=== PATIENT | male | born 2005 | race Caucasian/White ===

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

== ENCOUNTER 2023-06-14 22:52 | Emergency (ER) | payer SELFPAY ==
[2023-06-14] VITALS (14 sets, daily range): BP systolic 121–141; BP diastolic 55–74; PULSE 72–100; RESP 11–20; TEMP 37.1; O2SAT 97–100
--- NOTE | 2023-06-14 22:45 | RT.EKG_ITS ---
APPROVED REPORT Exam: Resting ECG Reason for Exam: RHIANNON Patient Location: E HR:81 bpm ECG Measurements Heart Rate [address] 116 P 44 QRSd 79 QRS 77 QT 417 T 57 QTc 485 Conclusion Sinus rhythm...normal P axis, V-rate 60- 99 ST elev, probable normal early repol pattern...ST elevation, age<55 sinus rhtyhm, normal axis, normal intervals, early repol anterior lateral leads
[2023-06-14] MEDS: Normal Saline 1,000 ML 1000 ML IV (23:01)
[2023-06-14 23:06] LABS: Abs Immature Grans 0.03 10^3/uL (0.0-0.06); Absolute Basophil Count 0.05 10^3/uL (0.0-0.2); Absolute Eosinophil Count 0.08 10^3/uL (0.0-0.7); Absolute Lymphocyte Count 2.97 10^3/uL (1.2-3.4); Absolute Monocyte Count 0.72 10^3/uL (0.1-0.8); Absolute Neutrophil Count 6.66 10^3/uL (1.2-6.7); Basophils % 0.5; Eosinophils % 0.8; HCT 40.2 % (40.0-50.0); HGB 14.6 g/dL (13.5-17.5); Immature Grans % 0.3; Lymphocytes % 28.3; MCH 29.9 pg (27.0-33.0); MCHC 36.3 % (32.0-36.0); MCV 82 fL (80-95); Monocytes % 6.9; Neutrophils % 63.2; Platelet Count 288 10^3/uL (130-400); RBC 4.88 10^6/uL (4.36-5.78); RDW 11.4 % (11.8-14.1); RDW-SD 34.3 fL; WBC 10.51 10^3/uL (4.4-10.8)
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
[2023-06-14 23:22] LABS: ALT 26 U/L (16-63); AST 19 U/L (15-37); Albumin 4.1 g/dL (3.4-5.0); Alkaline Phosphatase 83 U/L (46-116); Anion Gap 17.4 mmol/L (3-11); BUN 15 mg/dL (7-18); Bilirubin, Total 0.4 mg/dL (0.2-1.0); CO2 19.6 mmol/L (21.0-32.0); CREATININE 0.9 mg/dL (0.70-1.30); Calcium 9.4 mg/dL (8.5-10.1); Chloride 101 mmol/L (98-107); Estimated GFR 126.17 (mL/min/1.73m2); Glucose 126 mg/dL (74-106); Sodium 138 mmol/L (136-145); Total Protein 7.4 g/dL (6.4-8.2)
[2023-06-14] MEDS: Potassium Chloride 10 MEQ TABCR PO (23:47)
[2023-06-14] MEDS: POTASSIUM CHLORIDE 10 MEQ/100 ML BAG 100 MEQ IVPB (23:47)
[2023-06-15] VITALS (14 sets, daily range): BP systolic 115–188; BP diastolic 61–150; PULSE 66–106; RESP 11–22; TEMP 37.1; O2SAT 98–100
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
== END 2023-06-15 01:22 | disposition home or self-care (01) ==
PROVIDERS: Emergency Provider Emergency Medicine; PCP Student in an Organized Health Care Education/Training Program
DX: R55 Syncope and collapse (principal); E86.0 Dehydration; E87.6 Hypokalemia; F17.210 Nicotine dependence, cigarettes, uncomplicated
CPT/HCPCS: 80053; 93005; 96361; 96365; 99284; 70450; 85025; 93010; J3480

== ENCOUNTER 2023-09-24 11:08 | Emergency (ER) | payer SELFPAY ==
[2023-09-24 11:11] VITALS: BP 133/87; PULSE 67; RESP 17; TEMP 36.5; O2SAT 99
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
[2023-09-24 12:40] LABS: Abs Immature Grans 0.01 10^3/uL (0.0-0.06); Absolute Basophil Count 0.07 10^3/uL (0.0-0.2); Absolute Eosinophil Count 0.17 10^3/uL (0.0-0.7); Absolute Lymphocyte Count 2.45 10^3/uL (1.2-3.4); Absolute Monocyte Count 0.51 10^3/uL (0.1-0.8); Absolute Neutrophil Count 3.33 10^3/uL (1.2-6.7); Basophils % 1.1; Eosinophils % 2.6; HGB 16.4 g/dL (13.5-17.5); Immature Grans % 0.2; Lymphocytes % 37.5; MCH 29.9 pg (27.0-33.0); MCHC 35.7 % (32.0-36.0); MCV 84 fL (80-95); MPV 10.2 fL (8.0-11.0); Monocytes % 7.8; Neutrophils % 50.8; Platelet Count 230 10^3/uL (130-400); RBC 5.49 10^6/uL (4.36-5.78); RDW 11.7 % (11.8-14.1); RDW-SD 35.7 fL; WBC 6.54 10^3/uL (4.4-10.8)
[2023-09-24 13:09] LABS: ALT 26 U/L (16-63); AST 18 U/L (15-37); Alkaline Phosphatase 84 U/L (46-116); Anion Gap 7.8 mmol/L (3-11); BUN 10 mg/dL (7-18); Bilirubin, Total 0.7 mg/dL (0.2-1.0); CO2 28.2 mmol/L (21.0-32.0); CREATININE 0.5 mg/dL (0.70-1.30); Calcium 8.9 mg/dL (8.5-10.1); Chloride 104 mmol/L (98-107); Creatine Kinase 70 U/L (39-308); Estimated GFR 149.75 (mL/min/1.73m2); Glucose 99 mg/dL (74-106); Potassium 4.4 mmol/L (3.5-5.1); Sodium 140 mmol/L (136-145); Total Protein 6.9 g/dL (6.4-8.2)
== END 2023-09-24 13:35 | disposition home or self-care (01) ==
PROVIDERS: Emergency Provider Registered Nurse Emergency; PCP Student in an Organized Health Care Education/Training Program
DX: M62.838 Other muscle spasm (principal)
CPT/HCPCS: 36415; 80053; 80307; 82550; 99283; 81003; 85025

== ENCOUNTER 2025-07-22 13:50 | Emergency (ER) | payer OTHER, SELFPAY ==
[2025-07-22 13:53] VITALS: BP 130/66; PULSE 85; RESP 20; TEMP 36.9; O2SAT 98
[2025-07-22 14:45] VITALS: RESP 12
[2025-07-22] MEDS: Tetracaine 0.5% 4 ML BTL OP (14:50)
[2025-07-22] MEDS: Fluorescein STRIPS 100/BOX 1 MG OP (14:50)
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
== END 2025-07-22 15:47 | disposition home or self-care (01) ==
PROVIDERS: Emergency Provider Physician Assistant
DX: Y99.0 Civilian activity done for income or pay; Z77.098 Contact with and (suspected) exposure to other hazardous, chiefly nonmedicinal, chemicals; R51.9 Headache, unspecified
CPT/HCPCS: 99283